=== PATIENT | male | born 1990 | race Caucasian/White ===

== ENCOUNTER 2025-08-24 11:09 | Outpatient (OUT) | payer OTHER, SELFPAY ==
--- OUTSIDE RECORDS SUMMARY | 2025-08-24 05:54 | XMS_ITS | Continuity of Care Document ---
Author Organization [facility] Address [address] [place] [address] Phone Care Team Providers Care Watch Dial Printer Name Role Phone Jason Kelly MD Primary Care Provider Jason Kelly MD Attending Provider Care Teams Patient Care Team Team Status: Active Member Role/Relationship Status Dates Jason Kelly MD Primary Care Provider Active Patient Care Team Team Status: Inactive Member Role/Relationship Status Dates Jason Kelly MD Primary Care Provider Active S tart: August 24, 2025 End: August 24, 2025Mar JCARLOS Kellyttending ProviderActiveStart: August 24, 2025 End: August 24, 2025 Chief Complaint and Reason for Visit Chief Complaint Admit Date high blood pressure August 24, 2025 10:25am Reason for Visit Admit Date Annual physical exam August 24, 2025 10:25am Allergies, Adverse Reactions, Alerts Allergen Type Severity Reaction Last Updated Verified Status No Known Allergies Allergy Unknown August 24, 2025 10:34amYesActive Social History Smoking Status Status Start Date End Date Date of Observa tion Current some day smoker August 24, 2025 10:34am Observation Status Observation Response Date of Response Legal Sex Male (finding) Sex Assigned At BirthMaleJanuary 1990 Family History Relationship Condition Age at Onset Recorded Date/T madelyn father Hypertension Unknown grandparentDiabetes mellitusUnknown Problems Active Problems Problem Diagnosis/Recorded Date Onset Date Stat us Other specified postprocedural states September 05 8:01am Unknown Active Rupture of left distal biceps tendon August 29 11:24am Unknown Active Annual physical exam August 24, 2025 10:48am Unkno wn Active Essential (primary) hypertension August 22, 2025 1 :33pm Unknown Active Strain of distal biceps femoris tendon August 29, 2024 11:20am Unknown Active Vitamin D deficiency, unspecified August 22, 2025 1:34pm Unknown Active Inactive/Resolved Problems Problem Diagnosis/Recorded Date Onset Date Stat us Injury of forearm, left August 29, 2024 9:42am Unk nown Resolved Medications Medication Status Dose Units Route Directions Qty Days Refills S tart Date Stop Date End Date Reason(s) Instructions Adherence Oxycodone-Acetaminophen (Percocet) 5-325 mg tablet Discontinued 1 TAB PO E VERY 4-6 HOURS as needed for pain 20 5 0 September 05, 2024 December 12, 2024 7:48amRupture of left distal biceps tendon Other specified postprocedural state Other specified postprocedural statesDispense quantity of twenty tablets Z98.890, S46.212ACephalexin 500 mg moiymqwLtgwhfxdzfxi080BUYHRhqbq 8 hours60 September 05, 2024 12:00amMarch 2024 7:48amNo Name (No Known Home Meds) ActiveAugust 24, 2025 12:00am Medical Equipment Device Date Implanted Device Details Orthopaedic bone screw, bioabsorbable September 06, 2024 DARIEN: [id number] Issuing Agency: [employer] Device Id: [id number] Expiration Date: 2026-06-03 Lot Number: [id number] Vital Signs Vital Reading Result Reference Range Collection Date/Time Height 68 [in_i] August 24, 2025 10:36pdIrntpw12.89 kgAugust 24, 2025 10:33amBody Jfhzonmdyoy89.1 [degF]97.6-99.0August 24, 2025 10:33amHeart Rate65 /min 60-100August 24, 2025 10:33amRespiratory rate8 /sah94-26LnsggemlAugust 24, 2025 10:33amOxygen saturation by Pulse mawegqsu66 %95-100August 24, 2025 10:33am BP Ciefbbod321 mm[Hg]100-140August 24, 2025 10:33amBP Ptatywjlj04 mm[Hg] 60-100August 24, 2025 10:33amBMI (Body Mass Index)31.4 kg/q5RqpxextlAugust 24, 2025 10:33am Advance Directives Advance Directive Response Recorded Date/ Time Advance Directives No August 9:22am Insurance Providers Guarantor Candida Pollack Address [address] [place] [id number] Info.Home Phone: Coverage Status Update:2024 Payer Group Member ID Coverage Type Subscriber Relationship to Subscriber Effective Date Expiration Date Vicki BC/BS Id: [id number] Encounters Encounter Location(s) Arrival/Admit Date Discharge/Departure Date Discharge/Departure Disposition Provider(s) Departed Physician/ Provider Office Visit -[facility] [place] August 24, 2025 10:25am August 24, 2025 10:53am Discharged to home care or self care (routine discharge) Jason Kelly MD Recent Diagnosis Onset Date Admit Date Annual physical exam Unknown August 242024 10:25am Assessments Diagnosis Onset Date Resolution Status Admit Date Annual physical exam acuteAugust 24, 2025 10:25am Plan of Treatment Future Tests Future scheduled test information is unavailable Pending Tests Test Name Ordered Date Scheduled Date Comprehensive Metabolic Panel August 24 10:48am Future Visits Future appointment information is unavailable Future Procedures Procedure Name Ordered Date Scheduled Date A1C with Estimated Average Glu August 24 10:48am Complete Blood Count Auto DiffAugust 24, 2025 10:48amLipid PanelAugust 24, 2025 10:48amThyroid Stimulating HormoneAugust 24, 2025 10:48am Future Medications Future medication information is unavailable Patient Instructions Patient instructions are unavailable
--- OUTSIDE RECORDS SUMMARY | 2025-08-24 11:14 | XMS_ITS | Clinical Summary ---
Author Organization [facility] Address [address] [place] [address] Care Team Providers Care Occupational Medicine Physician Name Role Phone Jason Kelly MD Primary Care Provider [phone] Social History Tobacco UseTypesPacks/DayYears UsedDateSmoking Tobacco: Never AssessedSex and Gender InformationValueDate RecordedSex Assigned at BirthNot on fileLegal Sex Male12/16/2022 6:34 PM EDTGender IdentityNot on fileSexual OrientationNot on file Plan of Treatment Not on file Care Teams Team MemberRelationshipSpecialtyStart DateEnd Date Jason Kelly MD PCP - GeneralFamily Hcrcuofv22/5/24
[2025-08-24 12:01] LABS: Alanine Aminotransferase 32 U/L (16-63); Albumin Globulin Ratio 1.3; Albumin Level 4.0 g/dL (3.4-5.0); Alkaline Phosphatase 51 U/L (46-116); Anion Gap 10.6; Aspartate Amino Transferase 18 U/L (15-37); Blood Urea Nitrogen 18.0 mg/dL (7.0-18.0); Calcium 8.9 mg/dL (8.5-10.1); Carbon Dioxide 27.5 mmol/L (21.0-32.0); Chloride 104 mmol/L (98-107); Cholesterol 175 mg/dL (<=200); Estimated GFR (African America >60 (>=60 mL/min/1.73m^2); Estimated GFR (Non-African Ame >60 (>=60 mL/min/1.73m^2); Globulin 3.0 g/dL; Glucose 82 mg/dL (74-106); HDL Cholesterol 42 mg/dL (40-60); Potassium 4.1 mmol/L (3.5-5.1); Sodium 138 mmol/L (136-145); Thyroid Stimulating Hormone 1.438 uIU/mL (0.358-3.740); Total Protein 7.0 g/dL (6.4-8.2); Triglycerides 96 mg/dL (<=150); VLDL CHOLESTEROL 19.2 mg/dL
[2025-08-24 13:08] LABS: Hematocrit 46.4 % (42.0-54.0); Hemoglobin 16.3 g/dL (14.0-18.0); Immature Granulocytes Abs Auto 0.00 10^3/uL (0.00-0.03); Immature Granulocytes Pct Auto 0.0 % (0.0-0.5); Lymphocytes Absolute Auto 2.4 10^3/uL (1.2-3.8); Mean Corpuscular HGB Conc 35.1 g/dL (29.9-35.2); Mean Corpuscular Hemoglobin 32.5 pg (25.9-34.0); Mean Corpuscular Volume 92.6 fL (80.0-94.0); Platelet Count 241 10^3/uL (150-450); Red Blood Count 5.01 10^6/uL (4.70-6.10); White Blood Count 5.0 10^3/uL (4.0-11.0)
== END 2025-08-24 11:10 | disposition home or self-care (01) ==
LOC: LAB 11:12
PROVIDERS: PCP Family Medicine; Visit Provider Family Medicine
DX: Z00.00 Encounter for general adult medical examination without abnormal findings (principal)
CPT/HCPCS: 36415; 80053; 80061; 83036; 84443; 85025